=== PATIENT | male | born 1955 | race Caucasian/White ===

== ENCOUNTER → 2018-02-01 15:26 | Outpatient (CLI) | payer OTHER, SELFPAY ==
--- NOTE | 2018-02-01 15:41 | RAD_ITS ---
STUDY: X-RAY - UNILATERAL RIBS ( RIGHT ) REASON FOR EXAM: Male, 62 years old. Pain and right lower ribs anteriorly radiating laterally since Zack after picking up firewood. History of right rib injury about 30 years ago. TECHNIQUE: 4 view(s) of the ribs. COMPARISON: None. FINDINGS: Normal visualized ribs without a demonstrated fracture. The visualized lung is clear and expanded. RAD/Ribs Unil 2V No CXR IMPRESSION: Normal x-ray examination of the ribs. Electronically Signed: Susi Lawson MD at 7:32 EDT , Service support ,
--- NOTE | 2018-02-01 16:00 | RAD_ITS ---
STUDY: X-RAY CHEST REASON FOR EXAM: Male, 62 years old. Pain and right lower ribs anteriorly radiating laterally since Thursday after picking up firewood. History of right rib injury about 30 years ago. TECHNIQUE: PA and lateral views of the chest. COMPARISON: None. FINDINGS: There is no demonstrated pneumothorax. Atelectatic changes or scarring in the lung bases. There is no demonstrated pleural abnormality. Normal size heart. Normal mediastinum and holly. Normal visualized pulmonary arteries. Normal visualized aortic arch and descending thoracic aorta. Normal visualized thoracic spine. Normal visualized ribs, clavicles, and shoulders. There is no demonstrated abnormality of the visualized soft tissue structures of the upper abdomen. RAD/Chest PA and Lateral IMPRESSION: Basal atelectasis and/or scarring. There is no demonstrated pneumothorax. No pulmonary edema, congestive heart failure or confluent pneumonia. Electronically Signed: Susi Lawson MD at 7:31 EDT , Service support ,
== END ==
PROVIDERS: Family Provider Family Medicine; PCP Family Medicine; Visit Provider Family Medicine
DX: R07.81 Pleurodynia (principal)
CPT/HCPCS: 71046; 71100; 71101

== ENCOUNTER → 2018-12-30 16:36 | Outpatient (CLI) | payer OTHER, SELFPAY ==
[2018-12-30 18:05] LABS: Anion Gap 9 (5-15); BUN 16 mg/dL (7-18); BUN/Creat Ratio 14.4 RATIO (10-20); Calcium,Total 8.9 mg/dL (8.5-10.1); Chloride 105 mmol/L (98-107); Cholesterol 171 mg/dL (200); Creatinine, Serum 1.11 mg/dL (0.70-1.30); EST Glomerular Filtration Rate 71 mL/min (>60); Est Glom Filt Rate - Afr Amer 86 mL/min (>60); Glucose 85 mg/dL (74-106); High Density Lipoprotein 61 mg/dL; Potassium 3.9 mmol/L (3.5-5.1); Sodium Level 141 mmol/L (136-145)
[2018-12-30 18:06] LABS: Microalbumin,Random Urine < 5.0 mg/L (NO RANGE EST.)
== END ==
PROVIDERS: Family Provider Family Medicine; PCP Family Medicine; Referring Provider Family Medicine; Visit Provider Family Medicine
DX: I10 Essential (primary) hypertension (principal)
CPT/HCPCS: 36415; 80048; 82043; 82465; 82570; 83718

== ENCOUNTER → 2019-12-06 08:44 | Outpatient (CLI) | payer OTHER, SELFPAY ==
[2019-12-06 10:23] LABS: Anion Gap 6 (5-15); BUN 22 mg/dL (7-18); BUN/Creat Ratio 19.1 RATIO (10-20); Calcium,Total 8.7 mg/dL (8.5-10.1); Chloride 104 mmol/L (98-107); Cholesterol 181 mg/dL (200); Creatinine, Serum 1.15 mg/dL (0.70-1.30); EST Glomerular Filtration Rate 68 mL/min (>60); Est Glom Filt Rate - Afr Amer 82 mL/min (>60); Glucose 92 mg/dL (74-106); High Density Lipoprotein 65 mg/dL; Potassium 3.5 mmol/L (3.5-5.1); Sodium Level 139 mmol/L (136-145); Triglycerides 65 mg/dL; Very Low Density Lipoprotein 13 mg/dL (5-40)
[2019-12-06 10:29] LABS: Microalbumin,Random Urine < 5.0 mg/L (NO RANGE EST.)
== END ==
PROVIDERS: PCP Family Medicine; Referring Provider Family Medicine; Visit Provider Family Medicine
DX: I10 Essential (primary) hypertension (principal)
CPT/HCPCS: 36415; 80048; 80061; 82043; 82570

== ENCOUNTER → 2020-03-21 11:18 | Outpatient (CLI) | payer OTHER, SELFPAY ==
[2020-03-24 12:02] LABS: SAR-COV-2 IGG ANTIBODY Negative (Negative); SAR-COV-2 IGM ANTIBODY Negative (Negative)
== END ==
PROVIDERS: PCP Family Medicine; Referring Provider Psychiatry & Neurology Psychiatry; Visit Provider Psychiatry & Neurology Psychiatry
DX: J06.9 Acute upper respiratory infection, unspecified (principal)
CPT/HCPCS: 36415; 86769

== ENCOUNTER → 2020-06-22 10:59 | Outpatient (CLI) | payer OTHER, SELFPAY ==
[2020-06-22 12:57] LABS: Microalbumin,Random Urine < 5.0 mg/L (NO RANGE EST.)
[2020-06-22 13:19] LABS: AST(SGOT) 20 U/L (15-37); Alanine Aminotransfer ALT/SGPT 29 U/L (16-61); Albumin, Serum 3.6 g/dL (3.2-5.0); Alkaline Phosphatase 57 U/L (45-117); Anion Gap 6 (5-15); BUN 16 mg/dL (7-18); Calcium,Total 8.7 mg/dL (8.5-10.1); Chloride 105 mmol/L (98-107); Cholesterol 190 mg/dL (200); Creatinine, Serum 1.07 mg/dL (0.70-1.30); EST Glomerular Filtration Rate 73 mL/min (>60); Est Glom Filt Rate - Afr Amer 89 mL/min (>60); Globulin 3.5 g/dL (2.2-4.2); Glucose 104 mg/dL (74-106); High Density Lipoprotein 63 mg/dL; PSA,Total - Annual Screen 0.41 ng/mL (0.00-4.00); Potassium 4.3 mmol/L (3.5-5.1); Protein, Total 7.1 g/dL (6.4-8.2); Sodium Level 138 mmol/L (136-145); Thyroid Stim Hormone (TSH) 1.34 uIU/mL (0.358-3.74); Triglycerides 56 mg/dL; Very Low Density Lipoprotein 11 mg/dL (5-40)
== END ==
PROVIDERS: PCP Family Medicine; Referring Provider Family Medicine; Visit Provider Family Medicine
DX: Z00.00 Encounter for general adult medical examination without abnormal findings (principal); I10 Essential (primary) hypertension
CPT/HCPCS: 36415; 80053; 80061; 82043; 82570; 84153; 84443; G0103

== ENCOUNTER 2021-01-15 10:34 | Outpatient (RCR) | payer OTHER, SELFPAY ==
[2021-01-15] MEDS: COVID-19 VACC, MRNA(PFIZER)/PF 30 MCG/0.3 ML SYRINGE IM (17:19)
[2021-02-05] MEDS: COVID-19 VACC, MRNA(PFIZER)/PF 30 MCG/0.3 ML SYRINGE IM (16:36)
== END 2021-04-16 23:59 ==
LOC: IMMUN 10:34
PROVIDERS: PCP Family Medicine; Referring Provider Family Medicine; Visit Provider Family Medicine
DX: Z23 Encounter for immunization (principal)
CPT/HCPCS: 0001A; 0002A; 91300

== ENCOUNTER → 2022-06-26 | Outpatient (CLI) | payer OTHER, SELFPAY ==
[2022-06-26 12:18] LABS: Absolute Lymphocyte Count 3.01 X10^3/uL (0.83-4.51); Absolute Neutrophil Count 3.9 X10^3/uL (2.0-7.7); Basophil# 0.06 X10^3/uL; Basophil% 0.8 % (0-1); Eosinophil# 0.33 X10^3/uL; Eosinophils% 4.2 % (0-5); Hemoglobin 13.7 g/dL (13.0-16.5); Lymphocyte # 3.01 X10^3/ul (0.83-4.51); Lymphocyte % 38.2 % (19-41); Mean Corp Hgb Conc 34.3 g/dL (32-36); Mean Corpuscular Volume 99.3 fL (80-94); Mean Platelet Vol. 8.9 fl (6.2-12.0); Monocyte# 0.52 X10^3/uL; Monocyte% 6.6 % (0-10); NRBC Flagged by Analyzer 0 % (0-5); Neutrophil # 3.94 X10^3/uL (2.7-7.7); Neutrophil % 50.1 % (47-70); Platelet Count 245 K/mm3 (150-450); RBC Distribution Width CV 12.8 % (11.6-14.6); RBC Distribution Width SD 47.1 fl (35.1-43.9); Red Blood Count 4.03 M/mm3 (4.6-6.2); White Blood Count 7.9 K/mm3 (4.4-11.0)
[2022-06-26 12:46] LABS: Vitamin B12 317 pg/mL (211-911)
[2022-06-26 12:48] LABS: Microalbumin,Random Urine < 5.0 mg/L (NO RANGE EST.)
[2022-06-26 12:53] LABS: AST(SGOT) 28 U/L (15-37); Alanine Aminotransfer ALT/SGPT 33 U/L (16-61); Albumin, Serum 3.7 g/dL (3.2-5.0); Alkaline Phosphatase 52 U/L (45-117); Anion Gap 5 (5-15); BUN 19 mg/dL (7-18); BUN/Creat Ratio 16.4 RATIO (10-20); Calcium,Total 9.4 mg/dL (8.5-10.1); Chloride 105 mmol/L (98-107); Creatinine, Serum 1.16 mg/dL (0.70-1.30); EST Glomerular Filtration Rate 66 mL/min (>60); Est Glom Filt Rate - Afr Amer 80 mL/min (>60); Globulin 3.6 g/dL (2.2-4.2); Glucose 103 mg/dL (74-106); Potassium 4.2 mmol/L (3.5-5.1); Protein, Total 7.3 g/dL (6.4-8.2); Sodium Level 138 mmol/L (136-145); Thyroid Stim Hormone (TSH) 1.59 uIU/mL (0.358-3.74)
[2022-07-02 18:02] LABS: Testosterone, % Free 2.56 % (1.50-4.20); Testosterone, Total 328 ng/dL (264-916)
== END | disposition home or self-care (01) ==
PROVIDERS: PCP Family Medicine; Referring Provider Family Medicine; Visit Provider Family Medicine
DX: F33.1 Major depressive disorder, recurrent, moderate (principal); I10 Essential (primary) hypertension; U09.9 Post COVID-19 condition, unspecified
CPT/HCPCS: 36415; 80053; 82043; 82570; 82607; 82746; 84402; 84403; 84443; 85025

== ENCOUNTER → 2023-07-28 | Outpatient (CLI) | payer OTHER, SELFPAY ==
[2023-07-28 12:22] LABS: Absolute Lymphocyte Count 2.89 X10^3/uL (0.83-4.51); Absolute Neutrophil Count 3.4 X10^3/uL (2.0-7.7); Basophil# 0.05 X10^3/uL; Basophil% 0.7 % (0-1); Eosinophils% 5.5 % (0-5); Hematocrit 42.9 % (40-54); Lymphocyte # 2.89 X10^3/ul (0.83-4.51); Lymphocyte % 39.4 % (19-41); Mean Corp Hgb Conc 32.6 g/dL (32-36); Mean Corpuscular Hgb 33.5 pg (27.0-32.0); Mean Corpuscular Volume 102.6 fL (80-94); Mean Platelet Vol. 9.4 fl (6.2-12.0); Monocyte# 0.53 X10^3/uL; Monocyte% 7.2 % (0-10); NRBC Flagged by Analyzer 0 % (0-5); Neutrophil # 3.41 X10^3/uL (2.7-7.7); Neutrophil % 46.5 % (47-70); Platelet Count 250 K/mm3 (150-450); RBC Distribution Width CV 11.9 % (11.6-14.6); RBC Distribution Width SD 45.2 fl (35.1-43.9); Red Blood Count 4.18 M/mm3 (4.6-6.2); White Blood Count 7.3 K/mm3 (4.4-11.0)
[2023-07-28 12:31] LABS: Microalbumin,Random Urine 10.3 mg/L (NO RANGE EST.); Microalbumin:Creatinine Ratio 4.8 mg/g CRE (<30 mg/g CRE)
[2023-07-28 12:35] LABS: ALB/GLOB Ratio 1.2 RATIO (0.9-2.4); AST(SGOT) 19 U/L (15-37); Alanine Aminotransfer ALT/SGPT 25 U/L (16-61); Albumin, Serum 3.9 g/dL (3.2-5.0); Alkaline Phosphatase 49 U/L (45-117); Anion Gap 4 (5-15); BUN 19 mg/dL (7-18); BUN/Creat Ratio 16.5 RATIO (10-20); Calcium,Total 8.6 mg/dL (8.5-10.1); Chloride 107 mmol/L (98-107); Cholesterol 188 mg/dL (200); Creatinine, Serum 1.15 mg/dL (0.70-1.30); EST Glomerular Filtration Rate 67 mL/min (>60); Est Glom Filt Rate - Afr Amer 81 mL/min (>60); Globulin 3.2 g/dL (2.2-4.2); Glucose 105 mg/dL (74-106); High Density Lipoprotein 74 mg/dL; Potassium 4.5 mmol/L (3.5-5.1); Protein, Total 7.1 g/dL (6.4-8.2); Sodium Level 140 mmol/L (136-145); Triglycerides 41 mg/dL; Very Low Density Lipoprotein 8 mg/dL (5-40)
== END | disposition home or self-care (01) ==
LOC: MFPLAB 09:53
PROVIDERS: PCP Family Medicine; Visit Provider Family Medicine
DX: F33.1 Major depressive disorder, recurrent, moderate (principal); I10 Essential (primary) hypertension; E78.5 Hyperlipidemia, unspecified
CPT/HCPCS: 36415; 80053; 80061; 82043; 82570; 85025

== ENCOUNTER 2024-03-20 08:47 | Inpatient (IN) | payer OTHER, MEDICARE, SELFPAY ==
[2024-03-20] VITALS (10 sets, daily range): BP systolic 74–154; BP diastolic 50–89; PULSE 68–89; RESP 14–19; TEMP 36.4–37.4; O2SAT 96–99; BMI 30.3; BMI 29.2
--- NOTE | 2024-03-20 08:59 | RAD_ITS ---
INDICATION: COUGH EXAMINATION/TECHNIQUE: X-RAY - XR Chest 1 View COMPARISON: No relevant prior comparison study available FINDINGS: LINES/DEVICES: None. LUNGS: No consolidation, edema or effusion. No pneumothorax. MEDIASTINUM AND CARDIOVASCULAR STRUCTURES: Cardiac silhouette not enlarged. Central airways and mediastinal contour are unremarkable. BONES AND SOFT TISSUES: Unremarkable. RAD/Chest 1 View (Portable) IMPRESSION: No radiographic evidence of acute cardiopulmonary disease. Electronically Signed: Shakeel Fulton MD at 9:45 EDT ,
--- NOTE | 2024-03-20 08:59 | CT_ITS ---
INDICATION: DIZZINESS,FALL EXAMINATION: CT BRAIN - CT Head or Brain W/O Contrast Injection TECHNIQUE: Multiple axial images were obtained of the head without intravenous contrast. A radiation dose optimization technique was used for this scan. IV Contrast dosage and agent: None. RADIATION DOSAGE (If Supplied By Facility): CTDIvol = ( 44.99 ) mGy, DLP = ( 812.98 ) mGycm COMPARISON: No relevant prior comparison study available FINDINGS: BRAIN PARENCHYMA: No intra- or extra-axial hemorrhage. No evidence of acute infarct. No intracranial mass or mass effect. There is preservation of the todd/white matter interface. Posterior fossa structures are unremarkable. CSF SPACES: Appropriate for age. No hydrocephalus. Basal cisterns are patent. CALVARIUM, SKULL BASE, PARANASAL SINUSES AND MASTOID AIR CELLS: Mild mucosal thickening of the maxillary sinuses. No discrete lytic or blastic abnormalities. ORBITS: Both globes, extraocular muscles, optic nerves and retrobulbar fat appear unremarkable. CT/Brain/Head without Contrast IMPRESSION: No acute intracranial process. N.B. : The above Results were Read Back by Shakeel Fulton MD to Pinky Monsivais DO, and understanding confirmed on 03/20/2024 11:13:21 (ET). Electronically Signed: Shakeel Fulton MD at 11:14 EDT ,
--- NOTE | 2024-03-20 09:00 | EX.ED.DYSGE1 ---
HPI History of Present Illness Chief Complaint: Dizziness Detail of Chief Complaint: Dizziness Informant: patient and spouse/S.O. Narrative Narrative: Patient presents the emergency department with complaint of dizziness that started few days ago. He describes more of a lightheaded feeling and feeling off balance. Denies vertiginous symptoms. Patient also started with a cough few days ago. No fever. Denies chest pain. Denies shortness of breath. Last evening he had 3 beers and some whiskey. Around 2:30 in the morning the son woke the up and said that something was wrong with the patient and he was up and trying to change his sheets. He had fallen per about 3 times. He did hit his head. No loss of consciousness. He recalls falling and states he tripped over some shoes. He denies neck pain. PFSH PFSH Allergy/AdvReac Type Severity Reaction Status Date / Time No Known Allergies Allergy Verified 03/20/24 08:47 Social History Smoking Status: Never smoker ROS ROS ED Review of Systems ROS Unobtainable: other Constitutional Constitutional ED: Reports lethargy; Denies chills, fever(s), sweats or weight loss Eyes Eyes: Denies blurry vision, change in vision or diplopia ENT ENT ED: Denies rhinorrhea or sore throat Cardiovascular Cardiovascular: Denies chest pain, orthopnea or racing heartbeat Respiratory/Chest Respiratory/Chest: Reports cough; Denies dyspnea, dyspnea on exertion, orthopnea or sputum Gastrointestinal Gastrointestinal: Denies abdominal pain, diarrhea, nausea or vomiting Genitourinary Genitourinary ED: Denies dysuria, hematuria or urinary frequency Musculoskeletal Musculoskeletal: Denies arthralgias, back pain, myalgias or neck pain Integumentary Denies abscess, Abrasions or rash Neurologic Neurologic: Reports other Details: Dizziness ; Denies headache(s) or weakness Psychiatric Psychiatric: Denies anxiety, depression or suicidal thoughts Endocrine Endocrinology: Denies polydipsia, polyphagia or polyuria Hematologic/Lymphatic Hematologic/Lymphatic: Denies easy bleeding, easy bruising or lymphadenopathy Allergic/Immunologic Allergic/Immunologic ED: Denies mouth swelling, tongue swelling or urticaria EXAM Physical Exam Const Vital Signs: 03/20/24 08:48 03/20/24 08:47 03/20/24 09:47 Temperature 97.6 F L Temperature Source Temporal Pulse Rate 78 86 Respiratory Rate 16 14 Respiratory Effort Normal Non-Labored Respiratory Pattern Normal Blood Pressure 135/87 H 126/84 H Blood Pressure Mean 103 98 Pulse Ox 98 98 Oxygen Delivery Method Room Air Room Air 03/20/24 10:47 Temperature Temperature Source Pulse Rate 86 Respiratory Rate 19 H Respiratory Effort Respiratory Pattern Blood Pressure 132/81 H Blood Pressure Mean 98 Pulse Ox 96 Oxygen Delivery Method Room Air Positive well nourished and well developed General Appearance ED: well developed and NAD HEENT Reports TM's clear and moist mucous membranes HEENT Narrative: Superficial abrasion over the left side of nose. normocephalic and atraumatic; Negative for trauma or tenderness Tympanic Membrane ED: Yes TM's clear Eyes PERRL and EOMs intact bilaterally General Eye ED: Negative for pale conjunctiva or scleral icterus Neck no lymphadenopathy, supple and no JVD General: Negative for tenderness Chest Wall inspection of chest normal and palpation of chest normal Chest: Negative for tenderness Resp normal respiratory effort and clear to auscultation bilaterally Effort and Inspection: Negative for respiratory distress or pain with movement Auscultation: Negative for rhonchi, wheezes or diminished lung sounds Cardio regular rate, regular rhythm, S1 normal heart sound, S2 normal heart sound and no murmurs Peripheral Pulses: pulses 2+ throughout GI normal to inspection, nondistended, normoactive bowel sounds, soft to palpation, non-tender, non-distended and no masses Back/Spine no CVA tenderness and no thoracic nor lumbar tenderness Extremity normal to inspection General Extremety ED: Negative for edema General Extremity: Negative for edema Neuro oriented x3, CN's II-XII intact bilaterally, no sensory deficits noted and gait normal Sensorium / Orientation: awake, alert, oriented to person, oriented to place and oriented to time Motor Exam: strength 5/5 throughout and strength abnormal Psych mental status grossly normal Skin no rashes or lesions noted and no wounds MDM MDM MDM Narrative Medical decision making narrative: Patient presents with dizziness x 2 days. He does have history of alcohol use. Had been drinking last evening. Has several falls. Per he has been hallucinating. IV line established. CT scan of the brain without contrast was unremarkable. CBC with differential white count of 10.3 with hemoglobin 13.9 and platelet count of 256. Chemistries unremarkable. EKG obtained arrival showed a sinus rhythm with a ventricular rate of 76 bpm with no acute ST segment changes. Troponin was normal at 4. Urinalysis normal. COVID flu and RSV testing was negative. Alcohol was less than 3. Orthostatic vital signs were positive with blood pressure dropping to 74 systolic with standing.. Patient continues to hallucinate in the emergency department told his there were 8 dogs in the room. I do not appreciate any obvious nystagmus. Recommended admission for further workup. in agreement. Lab Data Attestation: I reviewed the patient's lab results. Labs: Laboratory Results - last 24 hr 03/20/24 03/20/24 09:10 11:10 WBC 10.3 RBC 4.16 L Hgb 13.9 Hct 40.0 MCV 96.2 H MCH 33.4 H MCHC 34.8 RDW Std Deviation 41.3 RDW Coeff of Flavio 11.8 Plt Count 256 MPV 8.5 Immature Gran % (Auto) 0.500 Neut % (Auto) 64.9 Lymph % (Auto) 24.7 [place] % (Auto) 6.6 Eos % (Auto) 2.7 Baso % (Auto) 0.6 Absolute Neuts (auto) 6.7 Absolute Lymphs (auto) 2.55 Nucleated RBC % 0 Sodium 138 Potassium 4.3 Chloride 104 Carbon Dioxide 23.0 Anion Gap 11 BUN 15 Creatinine 1.26 Est GFR (MDRD) Af Amer 73 Est GFR (MDRD) Non-Af 60 BUN/Creatinine Ratio 11.9 Glucose 103 Calcium 8.6 Total Bilirubin 0.70 AST 22 ALT 21 Alkaline Phosphatase 57 Troponin I High Sens 4 Total Protein 7.2 Albumin 3.8 Globulin 3.4 Albumin/Globulin Ratio 1.1 Urine Color Yellow Urine Clarity Clear Urine pH 5.0 Ur Specific [place] 1.015 Urine Protein Negative Urine Glucose (UA) Normal Urine Ketones Negative Urine Occult Blood Negative Urine Nitrite Negative Urine Bilirubin Negative Urine Urobilinogen Normal Ur Leukocyte Esterase Negative Urine RBC 0 SEEN Urine WBC 0 SEEN Ur Squamous Epith Cells 0-5 SEEN Urine Bacteria 0 SEEN Urine Mucus 0 SEEN Ethyl Alcohol < 3.0 Radiography Diagnostic Testing: Clinical Impression(s) from Imaging Studies Brain CT 03/20/24 08:59 IMPRESSION: No acute intracranial process. N.B. : The above Results were Read Back by Shakeel Fulton MD to Pinky Monsivais DO, and understanding confirmed on 03/20/2024 11:13:21 (ET). Electronically Signed: Shakeel Fulton MD at 11:14 EDT , ADDENDUM: 03/20/24 1121 IMPRESSION: No acute intracranial process. N.B. : The above Results were Read Back by Shakeel Fulton MD to Pinky Monsivais DO, and understanding confirmed on 03/20/2024 11:13:21 (ET). Electronically Signed: Shakeel Fulton MD at 11:14 EDT , Chest X-Ray 03/20/24 08:59 IMPRESSION: No radiographic evidence of acute cardiopulmonary disease. Electronically Signed: Shakeel Fulton MD at 9:45 EDT , 1 view chest x-ray obtained interpreted by myself no evidence of infiltrate or pneumothorax or acute disease process. Radiology in agreement. EKG Initial EKG: Attestation: I personally reviewed and interpreted this EKG as follows: Comments: Sinus rhythm with rate of 76 bpm with no acute ST segment changes Discharge Plan Triage Chief Complaint: Dizziness ED Provider: Pinky Monsivais Dx/Rx/DC Orders Clinical Impression: URI, acute, Orthostatic hypotension, Hallucinations Primary Care Provider: Kuldeep Michele Referrals: Kuldeep Michele MD [Primary Care Provider] - Disposition Disposition: Acute Care Hospital [facility]
--- NOTE | 2024-03-20 09:02 | NURSING ---
NO OLD EKGS
[2024-03-20 09:31] LABS: Absolute Lymphocyte Count 2.55 X10^3/uL (0.83-4.51); Absolute Neutrophil Count 6.7 X10^3/uL (2.0-7.7); Basophil# 0.06 X10^3/uL; Basophil% 0.6 % (0-1); Eosinophil# 0.28 X10^3/uL; Eosinophils% 2.7 % (0-5); Hemoglobin 13.9 g/dL (13.0-16.5); Lymphocyte # 2.55 X10^3/ul (0.83-4.51); Lymphocyte % 24.7 % (19-41); Mean Corp Hgb Conc 34.8 g/dL (32-36); Mean Corpuscular Hgb 33.4 pg (27.0-32.0); Mean Corpuscular Volume 96.2 fL (80-94); Mean Platelet Vol. 8.5 fl (6.2-12.0); Monocyte# 0.68 X10^3/uL; Monocyte% 6.6 % (0-10); NRBC Flagged by Analyzer 0 % (0-5); Neutrophil # 6.69 X10^3/uL (2.7-7.7); Neutrophil % 64.9 % (47-70); Platelet Count 256 K/mm3 (150-450); RBC Distribution Width CV 11.8 % (11.6-14.6); RBC Distribution Width SD 41.3 fl (35.1-43.9); Red Blood Count 4.16 M/mm3 (4.6-6.2); White Blood Count 10.3 K/mm3 (4.4-11.0)
[2024-03-20 09:42] LABS: Alcohol, Blood (Medical)-Serum < 3.0 mg/dL
[2024-03-20 09:47] LABS: ALB/GLOB Ratio 1.1 RATIO (0.9-2.4); AST(SGOT) 22 U/L (15-37); Alanine Aminotransfer ALT/SGPT 21 U/L (16-61); Albumin, Serum 3.8 g/dL (3.2-5.0); Alkaline Phosphatase 57 U/L (45-117); Anion Gap 11 (5-15); BUN 15 mg/dL (7-18); BUN/Creat Ratio 11.9 RATIO (10-20); Calcium,Total 8.6 mg/dL (8.5-10.1); Chloride 104 mmol/L (98-107); Creatinine, Serum 1.26 mg/dL (0.70-1.30); EST Glomerular Filtration Rate 60 mL/min (>60); Est Glom Filt Rate - Afr Amer 73 mL/min (>60); Globulin 3.4 g/dL (2.2-4.2); Glucose 103 mg/dL (74-106); Potassium 4.3 mmol/L (3.5-5.1); Protein, Total 7.2 g/dL (6.4-8.2); Sodium Level 138 mmol/L (136-145); Troponin-I HS 4 pg/mL (3.0-78.0)
[2024-03-20] MEDS: 0.9% Normal Saline (1000mL) 1,000 ML 150 ML IV (11:09)
[2024-03-20 11:14] LABS: Bacteria 0 SEEN /hpf (None Seen); Mucous, Urine 0 SEEN /hpf (<or=2+); Red Blood Cells-Urine 0 SEEN /hpf (0-5); White Blood Cells 0 SEEN /hpf (0-5)
[2024-03-20 11:20] LABS: Color, Urine Yellow (Yellow); Glucose, Dipstick Normal (Normal); Ketone-Dipstick Negative (Negative); Leukocyte Esterase-Dipstick Negative /ul (Negative); Nitrite-Dipstick Negative (Negative); Occult Blood-Urine Negative /ul (Negative); Protein-Dipstick Negative (Negative); Specific Gravity, Urine 1.015 (1.002-1.030); Urine Bilirubin Dipstick Negative (Negative); Urine Clarity Clear (Clear); Urine Urobilinogen Normal (Normal)
[2024-03-20 11:25] LABS: Squamous Epithelial Cells - UA 0-5 SEEN /hpf (0-5)
[2024-03-20] MEDS: 0.9% Normal Saline (1000mL) 1,000 ML 999 ML IV (12:24)
--- NOTE | 2024-03-20 13:45 | NURSING ---
PCU OBS STEPHANIE ORTHOSTATIC HYPOTENSION, HALLUCINATIONS, DIZZINESS
--- NOTE | 2024-03-20 14:04 | MRI_ITS ---
STUDY: MR Brain W/O Contrast 03/20/2024 4:58 PM REASON FOR EXAM: Male, 68 years old. dizziness COMPARISON: CT done earlier today TECHNIQUE: Standardized multiplanar fat and water weighted pulse sequences were obtained. MR Brain W/O Contrast FINDINGS: There is mild cerebral atrophy with widening of the extra-axial spaces and ventricular dilatation. Normal white matter tracts of the supratentorial brain. There is mild prominence of the vermian folia, consistent with atrophy of the vermis. The cerebellar hemispheres are normal. Normal bilateral basal ganglia. Normal thalami. There is no extra-axial fluid accumulation. Normal flow voids within the major intracranial circulation suggesting patency by spin echo criteria. Normal sella turcica, pituitary gland, infundibular stalk, optic chiasm and hypothalamus. Normal tectal plate and pineal gland. Normal midbrain, gale and medulla. Normal basal cisterns. Normal bilateral temporal bones. Normal bilateral internal auditory canals. No demonstrated orbital abnormality, within the constraints of a routine brain study. There is mucoperiosteal inflammatory disease of the paranasal sinuses consistent with mild chronic sinusitis. Normal calvarium and skull base. Normal visualized soft tissue structures. Normal visualized upper cervical spine. Aspect score 10 MRI/Brain without Contrast IMPRESSION: (NOT LISTED IN ORDER OF SIGNIFICANCE) There are no acute intracranial findings. Electronically Signed: Todd Yi MD at 17:00 EDT ,
--- NOTE | 2024-03-20 14:04 | PCM.HP.STD ---
HPI - General General Date of Admission: 03/20/24 Date of Service: 03/20/24 Chief Complaint: Lightheadedness/hallucinations HPI Narrative CORAZON DE ANDA, is a 68 M who presented to the emergency department at [facility] on 03/20/2024 with a chief complaint of dizziness that he reported is consistent with lightheadedness. Symptoms were not vertiginous in nature and he felt like he has been off balance. He was also reported by the to have some hallucinations. Evidently he has had a cough for a couple of days now with no fever chills or any other symptoms. He denies shortness of breath on presentation. Evidently he drinks nightly and he reports he drinks 2-3 beers every night however his also noted that he drinks whiskey on a regular basis as well. We are not able to ascertain the volume that he drinks on a daily basis but the patient does state he goes without drinking on days and does not have any withdrawal symptoms. Unfortunately, his is not present at the time of my evaluation so I am relying on information in the chart from the emergency department plus what he is telling me in his history is somewhat questionable. He drank last night as noted above and around 2:30 in the morning his son woke the patient's up and said something was wrong with his father who is the patient. He was up trying to change the sheets on his bed and had fallen about 3 times while doing so. They did report he hit his head but had no injury or loss of consciousness. The patient did recall falling and states he tripped over some shoes and denied any other complaints. While he was in the emergency department with the emergency department physician present he told his that they were up to 8 dogs in the room. The patient denied any prescription pills or any illicit drug use. Vital signs on presentation showed a temperature of 97.6, heart rate 78, blood pressure was 135/87, respiratory rate 16 oxygen saturations were 98% on room air. Orthostatic vitals were done and in lying his blood pressure was 125/86, sitting 114/82 and standing 74/50. The patient is not on antihypertensives at baseline and takes no medications. Heart rates were 78, 81, and 89 respectively. His CBC was overtly unremarkable with a normal differential. His chemistry panel was unremarkable. Troponin was normal at 4. Liver functions were pending at the time of admission. His urine was unremarkable. EtOH alcohol level was less than 3. Urine toxicology screen was ordered but pending. CT of the brain was negative for any acute processes. Chest x-ray was negative for any acute findings. EKG was sinus rhythm with a rate of [address]-T wave changes concerning for acute ischemia. Intervals are normal. Given his hallucinations and orthostasis request for admission was made. He has been admitted as observation with ongoing workup pending. PFS no medical history Allergy/AdvReac Type Severity Reaction Status Date / Time No Known Allergies Allergy Verified 03/20/24 08:47 no significant family history no surgical history Social History (Updated 03/20/24 @ 14:[address] Sammie Randolph, DO) household members: family housing: house Smoking Status: Never smoker alcohol intake: current alcohol intake frequency: 3 or more drinks per day Alcohol type: beer and hard liquor substance use type: does not use ROS Constitutional Constitutional: Denies anorexia, change in weight, chills, fatigue, fever(s), malaise, night sweats, weakness or other Eyes Eyes: Denies blurry vision, change in eye color, change in vision, discharge from eye(s), double vision, erythema, eye pain, loss of vision or other ENT HEENT: Denies abnormal hearing, dysphagia, ear pain, epistaxis, headache(s), hearing loss, nasal congestion, nasal discharge, post nasal drip, sinus pressure, sore throat or other Cardiovascular Cardiovascular: Reports lightheadedness; Denies chest pain, claudication, dyspnea on exertion, edema, orthopnea, palpitations, paroxysmal nocturnal dyspnea, rapid heart rate, syncope or other Respiratory/Chest Respiratory/Chest: Reports cough; Denies dyspnea, excessive phlegm production, hemoptysis, productive cough, shortness of breath at rest, shortness of breath with exertion, wheezing or other Gastrointestinal Gastrointestinal: Denies abdominal pain, coffee ground emesis, constipation, diarrhea, dyspepsia, hematemesis, hematochezia, loose stools, melena, nausea, vomiting or other Genitourinary Genitourinary: Denies burning urination, difficulty urinating, dysuria, hematuria, nocturia, urinary frequency, urinary hesitancy, urinary incontinence, urinary urgency or other Musculoskeletal Musculoskeletal: Denies arthralgias, back pain, joint pain, joint stiffness, joint swelling, myalgias, neck pain or other Neurologic Neurologic: Reports abnormal gait and disequilibrium; Denies abnormal speech, confusion, dizziness, focal weakness, headache(s), numbness, paresthesias, seizure-like activity, seizures, syncope, tingling, tremor(s) or other Psychiatric Psychiatric: Denies anxiety, depression, homicidal ideation, suicidal ideation or other Endocrine Endocrinology: Denies change in body appearance, cold intolerance, excessive sweating, heat intolerance, polydipsia, polyuria or other Hematologic/Lymphatic Hematologic/Lymphatic: Denies anemia, easy bleeding, easy bruising, lymphadenopathy or other Allergic/Immunologic Allergic/Immunologic: Denies rhinitis, hives, eczemia, asthma or other Vital Signs Vital Signs Vital Signs: 03/20/24 08:48 03/20/24 08:47 03/20/24 09:47 Temperature 97.6 F L Temperature Source Temporal Pulse Rate 78 86 Pulse Rate [Lying] Pulse Rate [Sitting (for 1 minute prior to obtaining)] Pulse Rate [Standing (for 1 minute prior to obtaining)] Respiratory Rate 16 14 Respiratory Effort Normal Non-Labored Respiratory Pattern Normal Blood Pressure 135/87 H 126/84 H Blood Pressure [Lying] Blood Pressure [Sitting (for 1 minute prior to obtaining)] Blood Pressure [Standing (for 1 minute prior to obtaining)] Blood Pressure Mean 103 98 Blood Pressure Mean [Lying] Blood Pressure Mean [Sitting (for 1 minute prior to obtaining)] Blood Pressure Mean [Standing (for 1 minute prior to obtaining)] Pulse Ox 98 98 Oxygen Delivery Method Room Air Room Air 03/20/24 10:47 03/20/24 11:30 03/20/24 12:00 Temperature Temperature Source Pulse Rate 86 74 Pulse Rate [Lying] 78 Pulse Rate [Sitting (for 1 minute prior to obtaining)] 81 Pulse Rate [Standing (for 1 minute prior to obtaining)] 89 Respiratory Rate 19 H 15 Respiratory Effort Respiratory Pattern Blood Pressure 132/81 H 127/89 H Blood Pressure [Lying] 125/86 H Blood Pressure [Sitting (for 1 minute prior to obtaining)] 114/82 H Blood Pressure [Standing (for 1 minute prior to obtaining)] 74/50 L Blood Pressure Mean 98 101 Blood Pressure Mean [Lying] 99 Blood Pressure Mean [Sitting (for 1 minute prior to obtaining)] 92 Blood Pressure Mean [Standing (for 1 minute prior to obtaining)] 58 Pulse Ox 96 96 Oxygen Delivery Method Room Air Room Air Weight Weight: 97.1 kg Body Mass Index (BMI) 30.3 Physical Exam Const alert, oriented x3, no apparent distress and well nourished; Negative for average body habitus or healthy appearing Constitutional Narrative: Obese, older, white male, sitting up in bed, appears comfortable, appears somewhat flushed, does not appear toxic, alert and oriented x 3 however thought processes tangential in response times are somewhat slowed and he does show some intermittent confusion with current fax General Appearance: cooperative Orientation / Consciousness: confused HEENT normocephalic, head/scalp atraumatic, hearing grossly normal bilaterally and moist oral mucous membranes HEENT Narrative: Mallampati is 3, no thrush, dentition is fair Eyes PERRL, EOMs intact bilaterally and conjunctivae normal Eyes Narrative: No scleral icterus, no nystagmus at rest or with head movement Neck no lymphadenopathy, supple and no carotid bruits Neck Narrative: Trachea midline, no thyroid enlargement, neck is short and thick Resp normal respiratory effort, no retractions, no use of accessory muscles and clear to auscultation bilaterally Auscultation: Negative for crackles, rhonchi or wheezes Cardio regular rate, regular rhythm, S1 normal heart sound, S2 normal heart sound, no murmurs, no rub, no gallops and no clicks GI normal to inspection, nondistended, normoactive bowel sounds, soft to palpation and non-tender Extremity no clubbing, cyanosis or edema Extremity Narrative: Pedal pulses are 2+ Skin no rashes or lesions noted, no wounds, skin turgor normal, no jaundice, no petechiae and no mottling Neuro oriented x3, CN's II-XII intact bilaterally, moves all extremities and no focal motor deficits Neuro Narrative: No asterixis, no significant weakness noted, response times are slow Sensorium / Orientation: awake, alert, oriented to person, oriented to place and oriented to time Speech: speech normal Psych affect normal Psych Narrative: Thought process seems to be somewhat tangential Results Lab / Micro Data 03/20/24 09:10 03/20/24 09:10 Labs: Laboratory Results - last 24 hr 03/20/24 09:10: WBC 10.3, RBC 4.16 L, Hgb 13.9, Hct 40.0, MCV 96.2 H, MCH 33.4 H, MCHC 34.8, RDW Std Deviation 41.3, RDW Coeff of Flavio 11.8, Plt Count 256, MPV 8.5, Immature Gran % (Auto) 0.500, Neut % (Auto) 64.9, Lymph % (Auto) 24.7, [place] % (Auto) 6.6, Eos % (Auto) 2.7, Baso % (Auto) 0.6, Absolute Neuts (auto) 6.7, Absolute Lymphs (auto) 2.55, Nucleated RBC % 0, Sodium 138, Potassium 4.3, Chloride 104, Carbon Dioxide 23.0, Anion Gap 11, BUN 15, Creatinine 1.26, Est GFR (MDRD) Af Amer 73, Est GFR (MDRD) Non-Af 60, BUN/Creatinine Ratio 11.9, Glucose 103, Calcium 8.6, Total Bilirubin 0.70, AST 22, ALT 21, Alkaline Phosphatase 57, Troponin I High Sens 4, Total Protein 7.2, Albumin 3.8, Globulin 3.4, Albumin/Globulin Ratio 1.1, Ethyl Alcohol < 3.0 03/20/24 11:10: Urine Color Yellow, Urine Clarity Clear, Urine pH 5.0, Ur Specific [place] 1.015, Urine Protein Negative, Urine Glucose (UA) Normal, Urine Ketones Negative, Urine Occult Blood Negative, Urine Nitrite Negative, Urine Bilirubin Negative, Urine Urobilinogen Normal, Ur Leukocyte Esterase Negative, Urine RBC 0 SEEN, Urine WBC 0 SEEN, Ur Squamous Epith Cells 0-5 SEEN, Urine Bacteria 0 SEEN, Urine Mucus 0 SEEN Micro: Microbiology 03/20/24 09:10 Mucosa - Nose SARS-CoV-2, Influenza & RSV (PCR) - Final Imaging Radiology Impression Brain CT 03/20/24 08:59 IMPRESSION: No acute intracranial process. N.B. : The above Results were Read Back by Shakeel Fulton MD to Pinky Monsivais DO, and understanding confirmed on 03/20/2024 11:13:21 (ET). Electronically Signed: Shakeel Fulton MD at 11:14 EDT , ADDENDUM: 03/20/24 1121 IMPRESSION: No acute intracranial process. N.B. : The above Results were Read Back by Shakeel Fulton MD to Pinky Monsivais DO, and understanding confirmed on 03/20/2024 11:13:21 (ET). Electronically Signed: Shakeel Fulton MD at 11:14 EDT , Chest X-Ray 03/20/24 08:59 IMPRESSION: No radiographic evidence of acute cardiopulmonary disease. Electronically Signed: Shakeel Fulton MD at 9:45 EDT , Assessment & Plan Assessment/Plan (1) Orthostatic hypotension: (2) Hallucinations: PLAN: Plan Orthostatic hypotension -I suspect his lightheadedness is related to this -Will check MRI to rule out any other etiologies for his current symptoms that could be central in nature in conjunction with his acute confusion and hallucinations as well -Patient was given 1 L already in the emergency department and I will continue IV fluids on the floor next-repeat orthostatic vitals in the morning -patient is not on any antihypertensives at baseline and denies any drug use or [id number] medications that were new -Check TSH -Check liver functions Altered mental status/hallucinations -Check MRI in a.m. -Unclear on exactly how much alcohol the patient drinks on a daily basis and this could be related to alcohol withdrawal -For now we will start phenobarbital taper -CIWA with as needed Ativan -Check TSH -Check B12 -Check liver functions -Start thiamine and folate -Supportive medications as needed -Strongly encourage cessation of daily alcohol use -Will need to try to get a better idea of exactly how much patient drinks daily Cough/URI -Supportive care -COVID/flu/RSV were negative -Highly suspect other viral etiology Obesity -BMI 30.3 -Highly suspect patient may have sleep apnea -Would recommend outpatient sleep study DVT prophylaxis -Subcu Lovenox CODE STATUS -Full code Charges/Coding Visit Charges Inpatient E&M: 26611 Init Hosp L2
[2024-03-20 14:35] LABS: AST(SGOT) 23 U/L (15-37); Alanine Aminotransfer ALT/SGPT 20 U/L (16-61); Albumin, Serum 3.9 g/dL (3.2-5.0); Alkaline Phosphatase 55 U/L (45-117); Globulin 3.3 g/dL (2.2-4.2); Protein, Total 7.2 g/dL (6.4-8.2)
[2024-03-20] MEDS: Lactated Ringers 1,000 ML 125 ML IV (17:22)
[2024-03-20] MEDS: Phenobarbital 32.4 MG Tablet 97.2 MG PO ×3 (17:27→22:33)
[2024-03-20] MEDS: 0.9% Saline Lock 10 ML Syringe IV (17:30)
--- NOTE | 2024-03-20 18:51 | NURSING ---
03/20/24@1667- Pts called in to inform this nurse that pt stated i smell something burning. Pts wanted to make sure the hallucination was documented in the pts chart. will continue to monitor.
[2024-03-20] MEDS: traZODone 100 MG Tablet PO (21:22)
[2024-03-20] MEDS: Gabapentin 300 MG Capsule PO (21:22)
[2024-03-20] MEDS: LORazepam 2 MG/ML Syringe IV ×3 (21:23→23:31)
--- NOTE | 2024-03-20 21:28 | NURSING ---
Ativan 2mg IVP, trazodone and gabapentin given.
[2024-03-21] VITALS (9 sets, daily range): BP systolic 123–165; BP diastolic 76–94; PULSE 60–103; RESP 16–17; TEMP 35.6–36.8; O2SAT 93–98
[2024-03-21 00:43] LABS: Amphetamine Urine VISTA NEGATIVE (<1000 ng/mL); Barbiturate Urine VISTA NEGATIVE (< 200 ng/mL); Benzodiazepine Urine VISTA NEGATIVE (< 200 ng/mL); Cocaine Urine VISTA NEGATIVE (< 300 ng/mL); Ecstacy Urine VISTA POSITIVE (< 500 ng/mL); Methadone Urine VISTA NEGATIVE (< 300 ng/mL); PCP Urine VISTA NEGATIVE (< 25 ng/mL); THC Urine VISTA POSITIVE (< 50 ng/mL); Vista UDS pH Range 6
[2024-03-21] MEDS: Lactated Ringers 1,000 ML 125 ML IV (01:16)
[2024-03-21 05:41] LABS: Absolute Lymphocyte Count 3.11 X10^3/uL (0.83-4.51); Absolute Neutrophil Count 3.8 X10^3/uL (2.0-7.7); Basophil# 0.07 X10^3/uL; Basophil% 0.9 % (0-1); Eosinophil# 0.33 X10^3/uL; Eosinophils% 4.1 % (0-5); Hematocrit 37.7 % (40-54); Hemoglobin 12.5 g/dL (13.0-16.5); Lymphocyte # 3.11 X10^3/ul (0.83-4.51); Lymphocyte % 38.5 % (19-41); Mean Corp Hgb Conc 33.2 g/dL (32-36); Mean Corpuscular Hgb 33.2 pg (27.0-32.0); Mean Platelet Vol. 8.6 fl (6.2-12.0); Monocyte# 0.72 X10^3/uL; Monocyte% 8.9 % (0-10); NRBC Flagged by Analyzer 0 % (0-5); Neutrophil # 3.81 X10^3/uL (2.7-7.7); Neutrophil % 47.2 % (47-70); Platelet Count 233 K/mm3 (150-450); RBC Distribution Width CV 11.8 % (11.6-14.6); Red Blood Count 3.77 M/mm3 (4.6-6.2); White Blood Count 8.1 K/mm3 (4.4-11.0)
[2024-03-21 06:11] LABS: Magnesium 2.3 mg/dL (1.6-2.6); Phosphorus 3.3 mg/dL (2.5-4.9); Thyroid Stim Hormone (TSH) 1.84 uIU/mL (0.358-3.74)
[2024-03-21] MEDS: Enoxaparin 40 MG/0.4 ML Syringe SC (11:58)
--- NOTE | 2024-03-21 14:15 | CASEMGMT ---
Met with?patient and his to complete ALCARAZ form. ALCARAZ form explained to?patients who voiced understanding and signed form. Original form placed in pt?s chart and copy provided to patients .? Desiree Donnelly, Discharge Planning Asst
--- NOTE | 2024-03-21 14:38 | CHAPLAIN ---
Type of Pastoral Visit _x__ Initial Visit ___ Follow-up Visit ___ On-call Visit ___ General Patient Visit ___ Spiritual Assessment ___ Family Conference ___ Bereavement ___ Rapid Response ___ Code Blue ___ Other (describe below) Pastoral Care Referral From _x__ Patient ___ Family ___ Nurse ___ Physician ___ Mine Laborer ___ Facialist ___ Other (describe below) Sacrament/Intervention _x__ Active listening ___ Anointing ___ Congregation ___ Bereavement ___ Communion ___ Saskia exploration ___ ___ Life review ___ Prayer ___ Reconciliation ___ Sacrament of Sick _x__ Supportive presence ___ Wedding ___ Other (describe below) Pastoral Comments patient is slow to speak about his condition or feelings; spouse is at bedside and describes the situation; 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
[2024-03-21] MEDS: Acetaminophen 325 MG Tablet 650 MG PO (15:57)
--- NOTE | 2024-03-21 18:43 | PCM.PN.HOSP ---
Reason for Visit Reason for Visit: Diagnoses Orthostatic hypotension (03/21/24) Hallucinations, unspecified (03/21/24) Subjective Subjective Patient was seen and examined today, he appeared drowsy and somnolent, he was able to answer a few simple questions appropriately however. Patient's was present at the bedside, I went over the results of his MRI with her. I have elected to stop the patient's medications for alcohol withdrawal at this time, I think it is unlikely he is going through alcohol withdrawal, the exact etiology of the patient's confusion yesterday is unknown, patient will be observed at this time. Objective Data Objective Data Vital Signs: Vital Signs Temp Pulse Resp BP Pulse Ox O2 Del Method 97.2 F L 66 16 138/76 H 97 Room Air 03/21/24 15:40 03/21/24 15:51 03/21/24 15:40 03/21/24 15:51 03/21/24 15:40 03/21/24 15:40 Oxygen Delivery Method Room Air Weight: 93.8 kg Body Mass Index (BMI) 29.2 Intake & Output: Intake and Output for Last 24 Hours 03/19/24 03/20/24 03/21/24 23:59 23:59 23:59 Intake Total 2077.5 / 2277.5 2287.5 / 2287.5 Output Total 500 / 500 400 / 400 Balance 1577.5 / 1777.5 1887.5 / 1887.5 Lab / Micro Data 03/21/24 04:55 03/20/24 09:10 Labs: Laboratory Results - last 24 hr 03/20/24 11:10: Urine Opiates Screen NEGATIVE, Urine Methadone Screen NEGATIVE, Ur Barbiturates Screen NEGATIVE, Ur Phencyclidine Scrn NEGATIVE, Ur Amphetamines Screen NEGATIVE, MDMA (Ecstasy) Screen POSITIVE H, U Benzodiazepines Scrn NEGATIVE, Urine Cocaine Screen NEGATIVE, U Cannabinoids Screen POSITIVE H, Ur Drug Screen Comment 03/21/24 04:55: WBC 8.1, RBC 3.77 L, Hgb 12.5 L, Hct 37.7 L, MCV 100.0 H, MCH 33.2 H, MCHC 33.2, RDW Std Deviation 43.0, RDW Coeff of Flavio 11.8, Plt Count 233, MPV 8.6, Immature Gran % (Auto) 0.400, Neut % (Auto) 47.2, Lymph % (Auto) 38.5, [place] % (Auto) 8.9, Eos % (Auto) 4.1, Baso % (Auto) 0.9, Absolute Neuts (auto) 3.8, Absolute Lymphs (auto) 3.11, Nucleated RBC % 0, Phosphorus 3.3, Magnesium 2.3, TSH 1.84 Micro: Microbiology 03/20/24 09:10 Mucosa - Nose SARS-CoV-2, Influenza & RSV (PCR) - Final Physical Exam Const no apparent distress and healthy appearing Constitutional Narrative: Patient is somnolent at the time my examination, he is oriented as to person and place General Appearance: cooperative, well kempt and well developed HEENT normocephalic, head/scalp atraumatic and moist oral mucous membranes Eyes PERRL, EOMs intact bilaterally and conjunctivae normal Neck supple, no JVD, thyroid normal and no carotid bruits General: trachea midline Resp normal respiratory effort, no retractions, no use of accessory muscles and clear to auscultation bilaterally Auscultation: Negative for rales, rhonchi or wheezes Cardio regular rate, regular rhythm, S1 normal heart sound, S2 normal heart sound, no murmurs, no rub and no gallops GI normal to inspection, nondistended, normoactive bowel sounds, soft to palpation, non-tender and non-distended Extremity no clubbing, cyanosis or edema Skin no rashes or lesions noted General Skin Exam: no breakdown Neuro oriented x3, CN's II-XII intact bilaterally, moves all extremities, no focal motor deficits and no sensory deficits noted Neuro Narrative: Patient is somnolent, he does awaken to verbal and tactile stimulation and answers some simple questions appropriately Psych Psych Narrative: Patient appears somnolent Assessment & Plan Assessment/Plan (1) Hallucinations: PLAN: Plan 1. Altered mental status with reported hallucinations-etiology unclear at this time, patient will be observed for any further problems at this time, I have elected to take him off gabapentin and trazodone, he is not receiving any phenobarbital. #2 orthostatic hypotension-etiology unclear, patient is not currently receiving any IV fluids, he is able to take oral liquids. Blood pressure will be monitored Total clinical time spent by myself addressing the patient's medical issues, reviewing all of his data, and collaborating with patient's care team: 35 minutes Charges/Coding Visit Charges Inpatient E&M: 14415 Subs Hosp L2
[2024-03-21 19:17] LABS: Vitamin B12 334 pg/mL (211-911)
--- NOTE | 2024-03-21 20:22 | CT_ITS ---
STUDY: CT BRAIN WITHOUT CONTRAST REASON FOR EXAM: Male, 68 years old. Confusion RADIATION DOSAGE (If Supplied By Facility): CTDIvol = ( 44.99 ) mGy, DLP = ( 812.98 ) mGycm TECHNIQUE: Transaxial CT imaging of the brain was performed without administration of intravenous contrast material. Individualized dose optimization techniques were used for this CT. COMPARISON: No relevant priors. FINDINGS: Normal soft tissue structures. Normal calvarium. Normal size ventricles and extra-axial spaces for the patient''s age. Normal white matter tracts of the cerebral hemispheres. Normal basal ganglia and thalami. Normal brainstem. Normal cerebellum. There is no intracranial hemorrhage. There are no findings of an acute ischemic infarction. Normal visualized paranasal sinuses. CT/Brain/Head without Contrast IMPRESSION: Normal unenhanced CT scan of the brain. Electronically Signed: James Canales MD at 21:47 EDT ,
[2024-03-21] MEDS: LORazepam 1 MG Tablet 2 MG PO (20:25)
[2024-03-21] MEDS: 0.9% Saline Lock 10 ML Syringe IV ×2 (20:27→23:12)
[2024-03-21] MEDS: LORazepam 2 MG/ML Syringe IV (23:09)
[2024-03-22] VITALS (8 sets, daily range): BP systolic 113–160; BP diastolic 72–94; PULSE 57–79; RESP 16–18; TEMP 36.4–36.9; O2SAT 89–98
[2024-03-22] MEDS: LORazepam 2 MG/ML Syringe IV (00:24)
[2024-03-22] MEDS: 0.9% Saline Lock 10 ML Syringe IV (00:26)
--- NOTE | 2024-03-22 00:30 | NURSING ---
Dr Sadler notified of 6 mg so far of ativan given tonight. Ciwa increasing does not seem to be helping. no new orders at this time. Also informed pt is not on phenobarbital since it was dc'd today.
[2024-03-22] MEDS: Thiamine Hydrochloride 100 MG Tablet PO (08:44)
[2024-03-22] MEDS: Enoxaparin 40 MG/0.4 ML Syringe SC (08:44)
[2024-03-22] MEDS: Folic Acid 1 MG Tablet PO (08:44)
[2024-03-22] MEDS: Acetaminophen 325 MG Tablet 650 MG PO (14:49)
--- NOTE | 2024-03-22 15:08 | CASEMGMT ---
RN CM Assessment Face to Face with patient for initial transition planning/care coordination assessment. Pt is currently withdrawing from ETOH and is disoriented. Pt is at bedside and is agreeable to answering this RN CM questions. Care providers, pharmacy, and demographics verified. Admitting dx: Orthostatic Hypotension/ Hallucinations PCP: Kuldeep Michele Specialists: Dr. Aron Wilder (Psychiatry) Preferred Pharmacy: [facility] Insurance: [employer], [facility] A ONLY Prescription Benefit: Yes LNOK: Luciana Sacha (W) Living Arrangements: Pt lives with his and 32 y/o son in a single story home with a BM and 1 step to enter ADLs/IADLs: Ind at baseline Transportation: Self, . Pt son does not drive DME: [employer]. Walk in shower. Pt denies all other DME uses or needs HHC/SNF: Denies history Plan: TBD. 6-Click is 20. Pt denies SNF needs at this time. Pt states that it is too early to tell what he will need. Pt does not deny HH or OP therapy at this time. PT eval is pending. CM to follow in regard to safe DC from [facility]. Cortez Marie RN, CM
--- NOTE | 2024-03-22 19:45 | PCM.PN.HOSP ---
Reason for Visit Reason for Visit: Diagnoses Orthostatic hypotension (03/21/24) Hallucinations, unspecified (03/21/24) Subjective Subjective Patient was seen and examined today, I talked with his extensively during my visit today, she was in the room visiting the patient. Patient appeared somnolent, he had been given Ativan last night for some agitation. I have elected to order an EEG on the patient, I have told nursing to try to refrain from sedating the patient tonight-I would like to get an idea what the patient's baseline mental status is. Objective Data Objective Data Vital Signs: Vital Signs Temp Pulse Resp BP Pulse Ox O2 Del Method O2 Flow Rate 98.2 F 69 16 138/91 H 96 Room Air 2 03/22/24 12:00 03/22/24 12:00 03/22/24 12:00 03/22/24 12:00 03/22/24 12:00 03/22/24 18:00 03/22/24 01:00 Oxygen Flow Rate (L/min) 2 Oxygen Delivery Method Room Air Weight: 93.8 kg Body Mass Index (BMI) 29.2 Intake & Output: Intake and Output for Last 24 Hours 03/20/24 03/21/24 03/22/24 23:59 23:59 23:59 Intake Total 2077.5 / 2277.5 2787.5 / 2987.5 740 / 740 Output Total 500 / 500 1300 / 1300 Balance 1577.5 / 1777.5 1487.5 / 1687.5 740 / 740 Lab / Micro Data 03/21/24 04:55 03/20/24 09:10 Micro: Microbiology 03/20/24 09:10 Mucosa - Nose SARS-CoV-2, Influenza & RSV (PCR) - Final Radiography Diagnostic Testing: Radiology Impression Brain CT 03/21/24 20:22 IMPRESSION: Normal unenhanced CT scan of the brain. Electronically Signed: James Canales MD at 21:47 EDT , Physical Exam Narrative no apparent distress and healthy appearing Constitutional Narrative: Patient is somnolent at the time my examination General Appearance: cooperative, well kempt and well developed HEENT normocephalic, head/scalp atraumatic and moist oral mucous membranes Eyes PERRL, EOMs intact bilaterally and conjunctivae normal Neck supple, no JVD, thyroid normal and no carotid bruits General: trachea midline Resp normal respiratory effort, no retractions, no use of accessory muscles and clear to auscultation bilaterally Auscultation: Negative for rales, rhonchi or wheezes Cardio regular rate, regular rhythm, S1 normal heart sound, S2 normal heart sound, no murmurs, no rub and no gallops GI normal to inspection, nondistended, normoactive bowel sounds, soft to palpation, non-tender and non-distended Extremity no clubbing, cyanosis or edema Skin no rashes or lesions noted General Skin Exam: no breakdown Neuro oriented x3, CN's II-XII intact bilaterally, moves all extremities, no focal motor deficits and no sensory deficits noted Neuro Narrative: Patient is somnolent, he does awaken to verbal and tactile stimulation Psych Psych Narrative: Patient appears somnolent Assessment & Plan Assessment/Plan (1) Hallucinations: PLAN: Plan 1. Altered mental status with reported hallucinations-etiology unclear at this time, patient will be observed for any further problems at this time, will attempt to keep his sedation to minimum, EEG was ordered today #2 orthostatic hypotension-corrected at this time Total clinical time spent by myself addressing the patient's medical issues, reviewing all of his data, and collaborating with patient's care team: 35 minutes Charges/Coding Visit Charges Inpatient E&M: 29606 Subs Hosp L2
[2024-03-23] MEDS: Acetaminophen 325 MG Tablet 650 MG PO ×3 (00:55→20:15)
[2024-03-23 04:02] VITALS: PULSE 64
[2024-03-23 04:31] VITALS: BP 109/67; PULSE 66; RESP 16; TEMP 36.7; O2SAT 95
[2024-03-23 08:02] VITALS: O2SAT 98
[2024-03-23] MEDS: Thiamine Hydrochloride 100 MG Tablet PO (09:05)
[2024-03-23] MEDS: Enoxaparin 40 MG/0.4 ML Syringe SC (09:05)
[2024-03-23] MEDS: Folic Acid 1 MG Tablet PO (09:05)
[2024-03-23] MEDS: 0.9% Saline Lock 10 ML Syringe IV (09:05)
[2024-03-23 10:31] VITALS: BP 136/79; PULSE 61; RESP 18; TEMP 36.9; O2SAT 96
[2024-03-23 16:31] VITALS: BP 126/74; PULSE 63; RESP 20; TEMP 37.1; O2SAT 97
--- NOTE | 2024-03-23 17:24 | PCM.PN.HOSP ---
Reason for Visit Reason for Visit: Diagnoses Orthostatic hypotension (03/21/24) Hallucinations, unspecified (03/21/24) Subjective Subjective Patient was seen and examined today, I talked with his who was present at the time my examination. Patient was alert this morning and was reading the paper and eating breakfast. His mentation appears normal, he does not remember the events of the last couple of days however. Patient's EEG showed mild slowing of the brain waves suggestive of a mild encephalopathy but no seizure focus was noted. Patient states that he still feels a little wobbly walking, I have elected to keep the patient in the hospital at this time and have physical therapy continue to see him, I will reevaluate him tomorrow for possible discharge home. Objective Data Objective Data Vital Signs: Vital Signs Temp Pulse Resp BP Pulse Ox O2 Del Method O2 Flow Rate 98.5 F 61 18 136/79 H 96 Room Air 2 03/23/24 10:31 03/23/24 10:31 03/23/24 10:31 03/23/24 10:03/23/24 10:03/23/24 10:31 03/22/24 01:00 Oxygen Flow Rate (L/min) 2 Oxygen Delivery Method Room Air Weight: 93.8 kg Body Mass Index (BMI) 29.2 Intake & Output: Intake and Output for Last 24 Hours 03/21/24 03/22/24 03/23/24 23:59 23:59 23:59 Intake Total 2787.5 / 2987.5 740 / 740 Output Total 1300 / 1300 200 / 200 700 / 700 Balance 1487.5 / 1687.5 540 / 540 -700 / -700 Lab / Micro Data 03/21/24 04:55 03/20/24 09:10 Micro: Microbiology 03/20/24 09:10 Mucosa - Nose SARS-CoV-2, Influenza & RSV (PCR) - Final Physical Exam Const alert, oriented x3, no apparent distress, average body habitus and healthy appearing General Appearance: cooperative, well kempt and well developed Orientation / Consciousness: awake, oriented to person, oriented to place and oriented to time HEENT normocephalic, head/scalp atraumatic and moist oral mucous membranes Eyes PERRL, EOMs intact bilaterally and conjunctivae normal Neck supple, no JVD, thyroid normal and no carotid bruits General: trachea midline Resp normal respiratory effort and clear to auscultation bilaterally Auscultation: Negative for rales, rhonchi or wheezes Cardio regular rate, regular rhythm, S1 normal heart sound, S2 normal heart sound, no murmurs, no rub and no gallops GI normal to inspection, nondistended, normoactive bowel sounds, soft to palpation, non-tender and non-distended Extremity no clubbing, cyanosis or edema Skin no rashes or lesions noted General Skin Exam: no breakdown Neuro oriented x3, CN's II-XII intact bilaterally, no focal motor deficits and no sensory deficits noted Sensorium / Orientation: awake and alert Speech: speech normal Psych affect normal Assessment & Plan Assessment/Plan (1) Hallucinations: PLAN: Plan 1. Acute encephalopathy-resolved at this time, the etiology of the encephalopathy is unknown, patient will be seen tomorrow again by PT and OT #2 orthostatic hypotension-corrected at this time I do not think the patient underwent alcohol withdrawal Total clinical time spent by myself addressing the patient's medical issues, reviewing all of his data, and collaborating with patient's care team: 25 minutes Charges/Coding Visit Charges Inpatient E&M: 21822 Subs Hosp L1
[2024-03-23 22:10] VITALS: BP 130/79; PULSE 58; RESP 18; TEMP 37; O2SAT 97
[2024-03-24 04:02] VITALS: BP 123/89; PULSE 63; RESP 18; TEMP 36.9; O2SAT 95
[2024-03-24 09:20] VITALS: BP 134/76; PULSE 76; RESP 16; TEMP 36.8; O2SAT 92
--- NOTE | 2024-03-24 14:34 | DCINST_ITS ---
Discharge Instructions Diet Discharge Diet: No restrictions Activity Discharge Activity: Return to Normal Activity Weight Bearing Status: Full weight bearing Follow Up Care Test Results: Test results from this visit will be discussed in further detail at your follow- up appointment, if applicable. Discharge Plan Admission Admit Date/Time: 03/21/24 14:24 Primary Reason for Your Visit: encephalopathy Attending Provider: Gabe Fuentes Primary Care Provider: Kuldeep Michele Consulting Providers: Sammie Randolph; Oswaldo Agustin; Laquita Cline; Gabriella Lawson; Barrett Head; Brigitte Mcarthur; STORMY TRAN; Cherry Owen; Chika Richardson; Phu Armenta; Mindy Cisneros Discharge Orders/Prescriptions Prescriptions: Continued irbesartan 150 mg tablet 150 mg PO DAILY bupropion HCl 300 mg tablet extended release 24 hr 300 mg PO DAILY Referrals / Follow Up: Kuldeep Michele MD [Primary Care Provider] - Within 2 Weeks Disposition Disposition (needs filled in before D/C Order can be placed): Home, Self Care
--- NOTE | 2024-03-24 14:39 | PCM.DC.SUM ---
Providers Date of Admission: 03/21/24 Date of Discharge: 03/24/24 Primary Care Physician: Dr. Kuldeep Michele MD Reason For Visit: ORTHOSTATIC HYPOTENSION/HALLUCINATIONS Diagnosis Discharge Diagnosis (1) Hallucinations: Status: Acute Code(s): R44.3 - Hallucinations, unspecified Plan 1. Acute encephalopathy-resolved at this time, the etiology of the encephalopathy is unknown, patient will be seen tomorrow again by PT and OT #2 orthostatic hypotension-corrected at this time I do not think the patient underwent alcohol withdrawal Total clinical time spent by myself addressing the patient's medical issues, reviewing all of his data, and collaborating with patient's care team: 25 minutes Medications at Discharge Home Medications bupropion HCl 300 mg 24 hr tablet, extended release 300 mg PO DAILY mental health 03/20/24 irbesartan 150 mg tablet 150 mg PO DAILY blood pressure 03/20/24 Hospital Course Operations None Procedures Electroencephalogram Summary of Care Provided Minutes Spent on Discharge: 31 Hospital Course: This 68-year-old white male was seen in the emergency room at [facility] after being brought in with altered mental status, he was having some hallucinations and confusion at home. Workup in the emergency room including imaging studies (CT of the brain) was unremarkable. There is a vague history of daily alcohol use and initially it was felt that the patient may be going through alcohol withdrawal but this was never confirmed. Patient was admitted to PCU, he remained confused and lethargic, he was medicated for agitation occasionally and an MRI was obtained which did not show any pathology. Patient's mental status gradually improved, he did had very little memory of the 4 days he spent in the hospital, he was seen by PT and OT and on 03/24/2024 it was felt he was stable for discharge and did not require any outpatient physical therapy. The etiology of the patient's encephalopathy was unclear. It was not felt to be related to alcohol use. EEG was performed which showed some generalized slowing indicative of encephalopathy but there were no seizure focus areas. On 03/24/2024, patient was seen and examined: On examination he appeared in good health and spirits. Vital signs as documented. Skin warm and dry and without overt rashes. Neck without JVD, neck was supple, trachea midline, thyroid was normal. Lungs clear bilaterally, normal air movement was noted. Heart exam notable for regular rhythm, normal sounds and absence of murmurs, rubs or gallops. Abdomen unremarkable and without evidence of organomegaly, masses, or abdominal aortic enlargement. Bowel sounds are present, abdomen is not distended. Extremities nonedematous, no cyanosis was noted, no clubbing was noted. Neuro: Cranial nerves II through XII are grossly intact, no focal motor deficits were noted, sensation to light touch and pinprick intact, motor exam 5/5 throughout. Psych: Patient is alert and oriented x3, he does not appear anxious or depressed, he does not appear agitated. On 03/24/2024, patient was seen and examined and felt to be in stable condition for discharge home Weight / BMI Weight Weight: 93.8 kg Body Mass Index (BMI) 29.2 ABG / Lab / Microbiology Data 03/21/24 04:55 03/20/24 09:10 Microbiology: Microbiology 03/20/24 09:10 Mucosa - Nose SARS-CoV-2, Influenza & RSV (PCR) - Final D/C Instructions Discharge Diet: No restrictions Weight Bearing Status: Full weight bearing Meaningful Use Info Meaningful Use Meaningful Use Diagnoses (Choose all that apply): None applicable Ischemic Stroke Statin Dosing Therapy Reference: STATIN DOSE THERAPY REFERENCE: * Patients > 75 years receive moderate or high dose statin therapy. * Patients 75 years or YOUNGER should receive HIGH intensity statin dose unless contraindicated. You will be required to document reason for non-treatment if statin daily dose does not meet guidelines. HIGH DOSE STATIN THERAPY DAILY Atorvastatin > than or = to 40 mg Rosuvastatin > than or = to 20 mg Amlodipine + Atorvastatin > than or = to 2.5/40 mg Ezetimibe + Simvastatin 10/80 mg Simvastatin 80mg Discharge Plan Admission Admit Date/Time: 03/21/24 14:24 Primary Reason for Your Visit: encephalopathy Attending Provider: Gabe Fuentes Primary Care Provider: Kuldeep Michele Consulting Providers: Sammie Randolph; Oswaldo Agustin; Laquita Cline; Gabriella Lawson; Barrett Head; Brigitte Mcarthur; STORMY TRAN; Cherry Owen; Chika Richardson; Phu Armenta; Mindy Cisneros Discharge Orders/Prescriptions Prescriptions: Continued irbesartan 150 mg tablet 150 mg PO DAILY bupropion HCl 300 mg tablet extended release 24 hr 300 mg PO DAILY Referrals / Follow Up: Kuldeep Michele MD [Primary Care Provider] - Within 2 Weeks Disposition Disposition (needs filled in before D/C Order can be placed): Home, Self Care Charges/Coding Visit Charges Inpatient E&M: 25301 Disch Hosp >30min
[2024-03-24 14:41] VITALS: BP 117/71; PULSE 97; RESP 16; TEMP 36.9; O2SAT 96
--- NOTE | 2024-03-24 14:50 | CASEMGMT ---
Patient has order for discharge. Patient up, independent in room. RN CM in to discuss needs at discharge. Patient denies needs or help at discharge. Patient had no further questions or concerns.
== END 2024-03-24 15:22 | disposition home or self-care (01) | DRG 312 ==
LOC: ED 11:44 → PCU 14:12
PROVIDERS: Admitting Provider Internal Medicine; Emergency Provider Emergency Medicine; PCP Family Medicine; Visit Provider Internal Medicine
DX: I95.1 Orthostatic hypotension (principal); G93.40 Encephalopathy, unspecified; R44.3 Hallucinations, unspecified; G47.30 Sleep apnea, unspecified; J06.9 Acute upper respiratory infection, unspecified; E66.9 Obesity, unspecified; Z68.30 Body mass index [BMI] 30.0-30.9, adult
CPT/HCPCS: 36415; 70450; 70551; 71045; 80053; 80076; 80307; 80320; 81001; 82607; 83735; 84100; 84443; 84484; 85025; 87631; 93005; 94668; 95819; 97161; 99285; 99406; J7030; J7120; A4216; G0480

== ENCOUNTER → 2024-09-06 | Outpatient (CLI) | payer OTHER, SELFPAY ==
[2024-09-06 17:02] LABS: Bacteria 0 SEEN /hpf (None Seen); Red Blood Cells-Urine 0 SEEN /hpf (0-5); Squamous Epithelial Cells - UA 0 SEEN /hpf (0-5); White Blood Cells 0 SEEN /hpf (0-5)
[2024-09-06 18:44] LABS: Color, Urine Yellow (Yellow); Glucose, Dipstick Normal (Normal); Ketone-Dipstick Negative (Negative); Leukocyte Esterase-Dipstick 25 /ul (Negative); Nitrite-Dipstick Negative (Negative); Occult Blood-Urine Negative /ul (Negative); Protein-Dipstick Negative (Negative); Urine Bilirubin Dipstick Negative (Negative); Urine Clarity Clear (Clear); Urine Urobilinogen Normal (Normal)
[2024-09-06 18:48] LABS: Absolute Lymphocyte Count 3.31 X10^3/uL (0.83-4.51); Absolute Neutrophil Count 3.9 X10^3/uL (2.0-7.7); Basophil# 0.06 X10^3/uL; Basophil% 0.7 % (0-1); Eosinophil# 0.28 X10^3/uL; Eosinophils% 3.4 % (0-5); Hematocrit 41.6 % (40-54); Hemoglobin 14.2 g/dL (13.0-16.5); Lymphocyte # 3.31 X10^3/ul (0.83-4.51); Lymphocyte % 39.9 % (19-41); Mean Corp Hgb Conc 34.1 g/dL (32-36); Mean Corpuscular Hgb 32.8 pg (27.0-32.0); Mean Corpuscular Volume 96.1 fL (80-94); Monocyte# 0.72 X10^3/uL; Monocyte% 8.7 % (0-10); NRBC Flagged by Analyzer 0 % (0-5); Neutrophil # 3.89 X10^3/uL (2.7-7.7); Neutrophil % 46.8 % (47-70); Platelet Count 262 K/mm3 (150-450); RBC Distribution Width CV 12.5 % (11.6-14.6); RBC Distribution Width SD 43.9 fl (35.1-43.9); Red Blood Count 4.33 M/mm3 (4.6-6.2); White Blood Count 8.3 K/mm3 (4.4-11.0)
[2024-09-06 19:12] LABS: Mucous, Urine 1+ /hpf (<or=2+)
== END | disposition home or self-care (01) ==
LOC: MTLAB 16:58
PROVIDERS: PCP Family Medicine
DX: R42 Dizziness and giddiness (principal)
CPT/HCPCS: 36415; 81001; 84443; 85025

== ENCOUNTER → 2024-10-04 | Outpatient (CLI) | payer OTHER, SELFPAY ==
--- NOTE | 2024-10-04 11:22 | NEURO ---
NCS and/or EMG Patient Report Ordering Doctor: James Rai DATE OF SERVICE: 10/04/24 Clinical Summary: 68 year old male patient with symptoms of pain and discomfort in both of his hands/fingers. Nerve Conduction Studies Summary: Nerve conduction studies of the bilateral upper extremities were performed. The median-D2 SNAP distal latency was prolonged. The left median motor conduction velocity was reduced in the forearm segment. There was left ulnar motor conduction velocity slowing across the elbow greater than 10 m/s. Needle Examination Summary: Needle examination of select muscles of the bilateral upper extremities demonstrated a higher proportion of motor unit action potentials with reduced recruitment, increased amplitude, increased duration, and polyphasia in the left abductor pollicis brevis muscle. Impression: This is an abnormal study. There is electrodiagnostic evidence of the following - 1) Moderate to severe, left median mononeuropathy at the wrist (carpal tunnel syndrome), with secondary motor fiber axonal loss 2) Left ulnar mononeuropathy at the elbow, with primarily demyelinating features There is no electrodiagnostic evidence of a right median mononeuropathy (right CTS) or right ulnar mononeuropathy. Multi Select Codes Neurology Neurology Interp Codes: 57790-73 Musc test done w/n test comp (interp) (2) and 81967-01 Nrv cndj test 13/> studies (interp)
== END | disposition home or self-care (01) ==
LOC: PSN 08:44
PROVIDERS: PCP Family Medicine; Referring Provider Orthopaedic Surgery; Visit Provider Orthopaedic Surgery
DX: G56.03 Carpal tunnel syndrome, bilateral upper limbs (principal)
CPT/HCPCS: 95886; 95913